=== PATIENT | female | born 1960 | race Caucasian/White ===

== ENCOUNTER → 2017-07-08 10:15 | Outpatient (CLI) | payer OTHER, SELFPAY ==
--- NOTE | 2017-07-08 10:23 | US_ITS ---
STUDY: ABDOMINAL ULTRASOUND - RIGHT UPPER QUADRANT REASON FOR VISIT: Female, 56 years old. Abdominal pain TECHNIQUE: Ultrasound evaluation of the right upper quadrant was performed with real-time and static timmons-scale imaging. TECHNICAL QUALITY: Adequate. COMPARISON: None. FINDINGS: Liver: The liver measures 15.8 cm. There is increased echogenicity consistent with fatty infiltration. The bile ducts are within normal limits. There is hepatic color flow. The direction of portal flow is hepatopetal. There is no demonstrated mass lesion. Gallbladder: Normal distended gallbladder. The gallbladder wall measures 2.0 mm. There is a positive sonographic Chapman's sign. There is no pericholecystic fluid. There are no gallstones. Common Bile Duct (C.B.D.): The common bile duct measures 3.3 mm. Pancreas: The pancreatic tail was not visualized. There is increased echogenicity of the pancreas. There is no pancreatic ductal dilatation. Right Kidney: Normal size of the right kidney. The right kidney measures 10.2 x 4.9 x 4.3 cm. Normal renal cortex. The right cortex measures 1.5 cm. There is no demonstrated renal mass or cyst. There is no right hydronephrosis. US/Abdomen Limited IMPRESSION: Increased echogenicity of the liver consistent with steatosis. The pancreatic tail was not visualized. There is increased echogenicity of the pancreas which may represent fatty infiltration. A positive Chapman's sign of the gallbladder was elicited as per recycling technician. Gallbladder wall thickness is normal. There is no pericholecystic fluid or cholelithiasis. Electronically Signed: Rishi Hernandez MD at 23:54 EST , Service support ,
== END ==
PROVIDERS: Family Provider Family Medicine; PCP Family Medicine; Visit Provider Family Medicine
DX: R10.11 Right upper quadrant pain (principal)
CPT/HCPCS: 76705

== ENCOUNTER → 2017-07-19 12:29 | Outpatient (CLI) | payer OTHER, SELFPAY ==
--- NOTE | 2017-07-19 12:31 | NM_ITS ---
Procedure: Hepatobiliary scan. History: Right upper quadrant pain. Comparison: Ultrasound 07/08/2017, which showed no stones. Technique: Patient was given a dose of 5.2 mCi technetium Choletec. Imaging was performed for approximately 90 minutes. Findings: There is normal tracer uptake by liver. Common bile duct activity is seen by 15 minutes. Small bowel activity seen by 15 minutes. Gallbladder activity is first seen by 75 minutes and increases normally over the course of the exam. Gallbladder ejection fraction after standard fatty meal is within normal limits at 50%. NM/Hepatobilliary Img w/Pharm Int IMPRESSION: Mildly delayed gallbladder activity. This can be seen with chronic cholecystitis. No evidence for acute cholecystitis. Normal gallbladder ejection fraction. Electronically Signed: Gus John MD at 23:19 EST , Service support ,
== END ==
PROVIDERS: Family Provider Family Medicine; PCP Family Medicine; Visit Provider Family Medicine
DX: R10.11 Right upper quadrant pain (principal)
CPT/HCPCS: 78227; A9537

== ENCOUNTER 2017-08-02 08:27 | Day surgery (SDC) | payer OTHER, SELFPAY ==
[2017-08-02] VITALS (7 sets, daily range): BP systolic 152–173; BP diastolic 77–103; PULSE 58–97; RESP 16–20; TEMP 36.8–37.1; O2SAT 94–98; BMI 42.3
--- NOTE | 2017-08-02 08:36 | EKG12_ITS ---
Test Reason : PREOP Blood Pressure : / mmHG Vent. Rate : 067 BPM Atrial Rate : 067 BPM P-R Int : 182 ms QRS Dur : 088 ms QT Int : 426 ms P-R-T Axes : 034 024 033 degrees QTc Int : 450 ms Normal sinus rhythm Normal ECG No previous ECGs available Confirmed by RAMSEY CARMONA, JAMAR ([id number]), news assignment editor GWENDOLYN JARQUIN ([id number]) on 08/09/2017 1:35:42 PM Referred By: Garcia Diamond Confirmed By:JAMAR MUSTAFA MD
[2017-08-02] MEDS: Cefazolin 2 GM in 0.9% Normal Saline 100 ML IV (09:51)
--- NOTE | 2017-08-02 09:58 | DCINST_ITS ---
Discharge Diet: Light diet - advance as tolerated Discharge Activity: May Not Drive - for 2-3 days or while taking narcotic pain medications., - - Do not drive, work heavy equipment or sign legal documents for 24 hours. May shower in (days): 1 - with the bandage in place. Additional Activity Instructions:: Pain medication may cause nausea. You should typically eat light foods as you take your pain medications. Pain medication may also cause constipation. If this is a problem for you, please discuss with your doctor. Call your doctor if your incision/area has: Continuous Slow Oozing, Sudden Increased Bleeding, Increased Pain/ Swelling, Increased Redness, Foul Smelling Discharge Call your doctor if you observe: Fever of 101 or Higher Suture Line Care: Avoid Pulling/Pushing, Avoid Pinching/Bending Additional Dressing/Incision Instructions:: Leave operative bandaids on for 2 days. When you remove dressing, leave Steri-Strips on until your follow-up appointment, or until the Steri-Strips fall off on their own. Allergies/Adverse Reactions: Allergies clarithromycin [From Biaxin] Allergy (Mild, Verified 07/31/17 09:10) Unknown vicodin Allergy (Mild, Uncoded 07/25/17 13:47) Unknown Medications to take at Discharge carvedilol 6.25 mg tablet 6.25 mg PO BID 07/25/17 Oxycodone HCl/Acetaminophen [Percocet 5/325] 1 - 2 tab PO Q4H PRN PRN 4 Days # 30 tab 08/02/17 The following prescriptions were given: Oxycodone HCl/Acetaminophen [Percocet 5/325] 1 - 2 tab PO Q4H PRN PRN 4 Days # 30 tab PRN Reason: Pain Primary Care Physician: Ben Hancock [Primary Care Provider] - Please Follow Up With: Garcia Diamond MD - Please call [phone] to schedule an appointment. When: 7 days after your surgery.
--- NOTE | 2017-08-02 09:58 | PCM.OPRPT ---
Problem List (1) Biliary dyskinesia Status: Acute Report of Operation Date of Procedure: 08/02/17 Pre-Operative Diagnosis: K 82.8 biliary dyskinesia Post-Operative Diagnosis: Same Surgery/Procedure Performed:: 47244 laparoscopic cholecystectomy Type of Anesthesia:: General Anesthesiologist: Ezequiel Casillas Estimated Blood Loss (mL): < 25 cc Fluids Replaced: 1L Description of Procedure: Patient was brought into the operating room. Placed in the supine position. Under excellent endotracheal intubation the abdomen was sterilely prepped and draped in the usual fashion. Local was injected in the right upper quadrant. Incision was made. Visiport was used to gain access into the intra-abdominal cavity without injury to underlying structures. Patient had a midline incision around her umbilicus with adhesions located within this. There were no adhesions in the upper abdomen. I placed a subxiphoid #5 trocar under direct visualization. Inferior to this another #5 trocar was placed under direct visualization. And then a 1012 trocar was placed in the right midclavicular line under direct visualization. No injury to underlying structures was identified or seen. Patient was placed in the head up and rotated to the right. I grab the fundus of the gallbladder and retracted in a cephalad direction. I dissected out the cystic duct. 2 hematologic clips were placed distally and 1 proximally. The duct was ligated. The cystic artery was identified to Hem-o-rachana clips proximally and one distally were placed and the artery was ligated I deliver the gallbladder from the gallbladder bed with use of electrocautery. I did have some spillage of bile but no spillage of stones. I was able to easily retrieve all the bile. I placed a specimen and specimen bag and delivered through the 1012 trocar without difficulty. I irrigated the right upper quadrant good hemostasis was noted. I closed the fascia of the 1012 trocar with an 0 Vicryl with a GraNee needle. No injury to underlying structures were identified. Rest of the trochars were removed under direct visualization good hemostasis was noted. Skin incisions were closed with subcuticular stitches of 4-0 Monocryl. Steri-Strips are applied. Sterile dressings were applied. The patient tolerated the procedure well. - Admit VTE Documentation VTE Present on Admission: No VTE Mechan Device Prophylaxis: SCD's VTE Pharm Prophylaxis ordered?: No Reason prophylaxis not ordered:: Treatment Not Indicated
[2017-08-02] MEDS: Bupivacaine 0.25% 30 ML Vial (10:24)
--- NOTE | 2017-08-02 10:30 | GALL_PTH ---
PATIENT: MARBIN VIEIRA LOC: [facility] [place] U#:[id number] AGE/SX: 57/F ROOM: RE08/02/[address]: Dr. Garcia Diamond MD : 1960 BED: DIS: 08/02/2017 SPEC #: [id number] RECD: 08/02/17 15:10 STATUS: ROXI LYNDON #: [id number] SILVIO: 08/02/17 10:[address]: Garcia Diamond DEPT: SURGICAL PATHOLOGY RECD BY: Woo Luong ENTERED: 08/03/17 08:59 SP TYPE: STANLEY MENDOZA DR: Dr. Ben Hancock MD Tissues: Gallbladder, NOS Procedures: Surgery Specimen Level III HEADER OPERATION: Laparoscopic cholecystectomy PRE-OP DIAGNOSIS: Biliary dyskinesia TISSUE SUBMITTED: Gallbladder MICROSCOPIC DIAGNOSIS Gallbladder: Mild chronic cholecystitis. No stones are identified in the container or in the gallbladder. SJ:juan 08/04/17 MICROSCOPIC DESCRIPTION Slides are reviewed. GROSS DESCRIPTION Received is one container labeled with the patient's name and designated gallbladder. The specimen consists of a gallbladder measuring 7 cm in length and 3 cm in diameter. The external surface is pink-moy, smooth and glistening for the most part. Focally it is granular, hemorrhagic and contains cautery artifact. The gallbladder contains green-yellow mucoid bile. No stones are identified in the container or in the gallbladder. The mucosa is bile-stained and without any mass lesions. The gallbladder wall measures 0.2 cm in thickness. Home Health Manager sections from the gallbladder and the cystic duct are submitted in one cassette. / SJ:rg 08/03/17 TC:3 CPT: 52345
--- NOTE | 2017-08-02 11:21 | SUR.PHASEI ---
PATIENT ASKING WHAT PAIN MED SCRIPT DR MCNEIL WROTE, STATES SHE CANNOT TAKE PERCOCET, MAKES HER NAUSEATED LIKE THE VICODIN, REQUESTING TRAMADOL SCRIPT. DR MCNEIL NOTIFIED, WILL ESCRIPT TRAMADOL TO [facility] PER PATIENT REQUEST.
== END 2017-08-02 14:10 | disposition home or self-care (01) ==
LOC: SDC 08:28 → AC 08:29
PROVIDERS: Family Provider Family Medicine; PCP Family Medicine; Visit Provider Surgery
PROC: (CPT 47562; principal; 2017-08-02 10:10)
DX: K81.1 Chronic cholecystitis (principal); K82.8 Other specified diseases of gallbladder; I10 Essential (primary) hypertension
CPT/HCPCS: 47562; 88304; 93005; J7120; J2405

== ENCOUNTER → 2024-03-15 | Outpatient (CLI) | payer OTHER, SELFPAY ==
--- NOTE | 2024-03-15 14:02 | VDLE_ITS ---
Reason For Study: BLE Edema RIGHT LEFT GSV is normal. GSV is normal. CFV is compressible, phasic, and INCOMPETENT CFV is compressible, phasic, and INCOMPETENT for greater than 1.0 second. for greater than 1.0 second. FV is compressible, spontaneous, phasic, FV is compressible, spontaneous, phasic, competent and demonstrates normal competent and demonstrates normal augmentation. augmentation. POP V is compressible, spontaneous, phasic, POP V is compressible, spontaneous, phasic, competent and demonstrates normal competent and demonstrates normal augmentation. augmentation. T/P Trunk is compressible. T/P Trunk is compressible. PTV is compressible. PTV is compressible. RT PerV is compressible. LT PerV is compressible. Multiple compressible varicose veins noted Multiple compressible varicose veins noted throughout medial and lateral thigh. throughout medial and lateral thigh. Procedure This is a venous duplex using B-mode, color flow and spectral Doppler. Exam performed in department. The exam was diagnostic. A preliminary report was called and/or faxed to Dr. Mays / K[facility]. VL/Venous Duplex US - Pan Extrem Interpretation Summary Deep veins of the bilateral lower extremities are patent and compressible segme ntally. There is no evidence of bilateral lower extremity deep vein thrombosis. The bilateral great saphenous veins appear patent and compressible segmentally. Positive for reflux in the common femoral veins bilateral Ordering Physician: Amberly Mays Referring Physician: Amberly Mays Performed By: Stanton Ennis, RVT
== END | disposition home or self-care (01) ==
LOC: CVS 13:59
PROVIDERS: PCP Internal Medicine; Referring Provider Internal Medicine; Visit Provider Internal Medicine
DX: R60.0 Localized edema (principal)
CPT/HCPCS: 93970